=== PATIENT | female | born 1945 | race African-American/Black ===

== ENCOUNTER 2017-07-27 13:09 | Outpatient (CLI) | payer OTHER | END 2017-07-27 14:35 | disposition home or self-care (01) | LOC: MAMO-SONO 13:09 | DX: Z12.31 Encounter for screening mammogram for malignant neoplasm of breast (principal); Z87.898 Personal history of other specified conditions; C50.911 Malignant neoplasm of unspecified site of right female breast; C50.912 Malignant neoplasm of unspecified site of left female breast ==

== ENCOUNTER → 2017-07-27 | Outpatient (CLI) | payer OTHER | END | disposition home or self-care (01) | LOC: MRI 13:01 | DX: I63.8 Other cerebral infarction (principal) | CPT/HCPCS: 70551 ==

== ENCOUNTER 2017-10-17 11:01 | Outpatient (CLI) | payer OTHER ==
[~2017-10-17] VITALS: Ht 157.5 cm; Wt 98.9 kg
== END 2017-10-17 11:20 | disposition home or self-care (01) ==
LOC: OFIC 805 11:01
DX: H61.21 Impacted cerumen, right ear (principal); K14.0 Glossitis; K29.60 Other gastritis without bleeding; K13.21 Leukoplakia of oral mucosa, including tongue; J31.0 Chronic rhinitis; R49.1 Aphonia